=== PATIENT | male | born 1965 | race American Indian/Alaskan Native ===

== ENCOUNTER 2017-03-19 10:54 | Emergency (ER) | payer OTHER ==
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
[2017-03-19 11:11] VITALS: BP 123/74
--- NOTE | 2017-03-19 11:58 | XRay Report ---
LUMBOSACRAL SPINE, 3 VIEWS: History: Back pain Findings: The vertebral bodies, disk spaces and posterior elements are intact. No compression deformity or malalignment. Mild to moderate degenerative disc disease and facet arthropathy are noted at L4-5 and L5-S1. The SI joints are symmetric and unremarkable. Impression: Lumbar spondylosis. No acute injury is appreciated on x-ray.
[2017-03-19] MEDS ORDERED: MOTRIN PO ONE (12:36)
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
== END 2017-03-19 13:12 | disposition home or self-care (01) ==
LOC: ED 10:54
DX: S39.012A Strain of muscle, fascia and tendon of lower back, initial encounter (principal); M48.36 Traumatic spondylopathy, lumbar region; F17.200 Nicotine dependence, unspecified, uncomplicated; F12.10 Cannabis abuse, uncomplicated; V43.52XA Car driver injured in collision with other type car in traffic accident, initial encounter; Y93.89 Activity, other specified; Y92.410 Unspecified street and highway as the place of occurrence of the external cause; Y99.8 Other external cause status
CPT/HCPCS: 72100; 99283

== ENCOUNTER 2017-07-07 10:27 | Emergency (ER) | payer OTHER ==
[2017-07-07 10:42] VITALS: BP 139/92
[2017-07-07 11:38] LABS: Bilirubin,Urine NEG (Negative); Blood,Urine NEG (Negative); Ketones,Urine NEG (Negative); Leukocyte Esterase,Urine NEG (Negative); Mucus,Urine FEW /HPF; Nitrite,Urine NEG (Negative); Protein,Urine <15 mg/dL mg/dL (Negative); Urobilinogen,Urine < 2.0 mg/dL (<2.0)
[2017-07-07] MEDS ORDERED: TORADOL IM ONE (12:41)
[2017-07-07] MEDS ORDERED: NORCO 5/325 PO ONE (12:41)
--- NOTE | 2017-07-07 12:43 | Emergency Department Report ---
ED Back Pain/Injury HPI - General Chief Complaint: Back Pain/Injury Stated Complaint: BACK AND R LEG PAIN Time Seen by Provider: 07/07/17 12:29 Source: patient Limitations: No Limitations - History of Present Illness Initial Comments: 51-year-old male past medical history sciatica, degenerative spine disease presents with complaint of one-week of acute on chronic lower back pain radiating to right buttock and right leg. Patient denies any recent falls denies fevers or chills denies increased urinary frequency dysuria hematuria. Denies saddle paresthesias denies bladder or bowel incontinence. Patient is ambulatory without assistance. Awake alert and oriented 3. States he has intermittent sharp pain radiating from his lower back to his right buttock and into his right leg. States he has had this intermittently for one week. Feels better when he lies down. Bending and twisting makes pain slightly worse. MD Complaint: back pain Onset/Timin -: week(s) Similar Symptoms Previously: Yes Place: home, work Radiation: buttocks, right leg Severity: moderate Severity scale (0 -10): 7 Quality: aching Consistency: constant Improves With: immobilization Worsens With: walking Context: while lifting, turning/twisting, bending Associated Symptoms: denies other symptoms - Related Data Previous Rx's Medication Instructions Recorded Last Taken Type Cyclobenzaprine [Flexeril] 10 mg PO TID PRN #15 tablet 03/19/17 Unknown Rx Ibuprofen [Motrin 600 MG tab] 600 mg PO Q8H PRN #30 tablet 03/19/17 Unknown Rx Naproxen 500 mg PO BID PRN #30 tablet 07/07/17 Unknown Rx traMADol [Ultram 50 MG tab] 50 mg PO Q6HR PRN #15 tablet 07/07/17 Unknown Rx Allergies Allergy/AdvReac Type Severity Reaction Status Date / Time No Known Allergies Allergy Unverified 03/19/17 11:07 ED Review of Systems ROS: Stated complaint: BACK AND R LEG PAIN Other details as noted in HPI Constitutional: denies: chills, fever Eyes: denies: eye pain, eye discharge, vision change ENT: denies: ear pain, throat pain Respiratory: denies: cough, shortness of breath, wheezing Cardiovascular: denies: chest pain, palpitations Endocrine: no symptoms reported Gastrointestinal: denies: abdominal pain, nausea, diarrhea Genitourinary: denies: urgency, dysuria Musculoskeletal: back pain. denies: joint swelling, arthralgia Skin: denies: rash, lesions Neurological: denies: headache, weakness, paresthesias Psychiatric: denies: anxiety, depression Hematological/Lymphatic: denies: easy bleeding, easy bruising ED Past Medical Hx - Past Medical History Previous Medical History?: No - Surgical History Past Surgical History?: No - Social History Smoking Status: Current Every Day Smoker Substance Use Type: Alcohol - Medications Home Medications: Home Medications Medication Instructions Recorded Confirmed Last Taken Type Cyclobenzaprine [Flexeril] 10 mg PO TID PRN #15 tablet 03/19/17 Unknown Rx Ibuprofen [Motrin 600 MG tab] 600 mg PO Q8H PRN #30 tablet 03/19/17 Unknown Rx Naproxen 500 mg PO BID PRN #30 tablet 07/07/17 Unknown Rx traMADol [Ultram 50 MG tab] 50 mg PO Q6HR PRN #15 tablet 07/07/17 Unknown Rx ED Physical Exam - General Limitations: No Limitations General appearance: alert, in no apparent distress - Head Head exam: Present: atraumatic, normocephalic - Eye Eye exam: Present: normal appearance, PERRL, EOMI - ENT ENT exam: Present: mucous membranes moist - Neck Neck exam: Present: normal inspection - Respiratory Respiratory exam: Present: normal lung sounds bilaterally. Absent: respiratory distress - Cardiovascular Cardiovascular Exam: Present: regular rate, normal rhythm. Absent: systolic murmur, diastolic murmur, rubs, gallop - GI/Abdominal GI/Abdominal exam: Present: soft, normal bowel sounds - Rectal Rectal exam: Present: deferred - Extremities Exam Extremities exam: Present: normal inspection - Back Exam Back exam: Present: normal inspection - Expanded Back Exam Expanded Back exam: Positive Straight Leg Raise: Right (30 degrees) - Neurological Exam Neurological exam: Present: alert, oriented X3, CN II-XII intact, normal gait - Expanded Neurological Exam Expanded Patient oriented to: Present: person, place, time Cranial nerves: EOM's Intact: Normal, Facial Sensation: Normal Cerebellar function: Finger to Nose: Normal, Heel to Ferreira: Normal, Romberg: Normal Sensory exam: Upper Extremity Light Touch: Normal, Lower Extremity Light Touch: Normal Motor strength exam: RUE: 5, LUE: 5, RLE: 5, LLE: 5 Best Eye Response (Leanne): (4) open spontaneously Best Motor Response (Leanne): (6) obeys commands Best Verbal Response (Montgomery): (5) oriented Montgomery Total: 15 - Psychiatric Psychiatric exam: Present: normal affect, normal mood - Skin Skin exam: Present: warm, dry, intact, normal color. Absent: rash ED Course Vital Signs 07/07/17 07/07/17 07/07/17 10:40 13:02 13:03 Temperature 97.5 F L Pulse Rate 90 Respiratory 16 16 18 Rate Blood Pressure 139/92 O2 Sat by Pulse 99 Oximetry ED Medical Decision Making - Medical Decision Making A/P: Sciatica, history of herniated disc 1-short course of naproxen and tramadol 2-I educated patient on symptoms of herniated disks and sciatica 3-no clinical signs of cauda equina patient is ambulatory no decrease in rectal tone nobladder or bowel incontinence. Distal reflexes intact on clinical exam 4-follow up with primary care and orthopedics Critical care attestation.: If time is entered above; I have spent that time in minutes in the direct care of this critically ill patient, excluding procedure time. ED Disposition Clinical Impression: Sciatica Qualifiers: Laterality: right Qualified Code(s): M54.31 - Sciatica, right side Disposition: TO HOME OR SELFCARE Is pt being admited?: No Does the pt Need Aspirin: No Condition: Stable Instructions: Sciatica (ED), Lumbar Radiculopathy (ED), Back Pain (ED) Prescriptions: Naproxen 500 mg PO BID PRN #30 tablet PRN Reason: Pain traMADol [Ultram 50 MG tab] 50 mg PO Q6HR PRN #15 tablet PRN Reason: Pain Referrals: [facility] [Outside] - 3-5 Days [facility] [Outside] - 3-5 Days [facility] [Provider Group] - 3-5 Days Forms: Work/School Release Form(ED) Time of Disposition: 13:20
--- NOTE | 2017-07-07 13:13 | XRay Report ---
Lumbar spine 2 views: History: Lower back pain. Herniated disc. Findings: Normal height of vertebral bodies. Decrease in height of L4-5 and L5-S1. Sclerotic articular surfaces with peripheral osteophytes suggestive degenerative changes. No fracture. No soft tissue calcification. Impression: Degenerative changes lower lumbar spine.
== END 2017-07-07 13:32 | disposition home or self-care (01) ==
LOC: ED 10:27
DX: M54.31 Sciatica, right side (principal); F17.200 Nicotine dependence, unspecified, uncomplicated
CPT/HCPCS: 72100; 81001; 96372; 99284; J1885